=== PATIENT | male | born 1955 | race Caucasian/White ===

== ENCOUNTER 2017-05-11 09:11 | Outpatient (CLI) | payer BC | END 2017-05-11 09:12 | disposition home or self-care (01) | LOC: BICRAD 09:11 | PROVIDERS: ATTEND Neurological Surgery | DX: M47.26 Other spondylosis with radiculopathy, lumbar region (principal) | CPT/HCPCS: 72100 ==

== ENCOUNTER 2018-12-06 10:34 | Outpatient (CLI) | payer BC, MEDICARE ==
--- NOTE | 2018-12-06 14:02 | ULT ---
ABDOMINAL ULTRASOUND COMPLETE: Date: 12/06/18 HISTORY: Right upper quadrant and right flank pain. FINDINGS: Very heterogeneous echogenicity noted throughout the liver with some fairly well defined areas of hyp erechogenicity as well as some more normal or somewhat more low echogenic areas, most consistent with asymmetric fatty infiltration with some large areas of fatty sparing. No discrete focal mass. The gallbladder demonstrates no evidence of gallstones, wall thickening, edema, or pericholecystic fl uid. Common bile duct 0.5 cm. Visualized pancreas, IVC, aorta, and spleen are unremarkable. No renal hydronephrosis. No abscess or abnormal fluid collection. IMPRESSION: Heterogeneous liver echogenicity, evidence for fatty change, with large areas of fatty sparing. No ev idence of gallstones or other acute process. POS: [facility]
== END 2018-12-06 10:35 | disposition home or self-care (01) ==
LOC: BICULT 10:34
PROVIDERS: ATTEND Physician Assistant Medical
DX: R10.11 Right upper quadrant pain (principal); R19.4 Change in bowel habit; K76.0 Fatty (change of) liver, not elsewhere classified; R93.2 Abnormal findings on diagnostic imaging of liver and biliary tract
CPT/HCPCS: 76700

== ENCOUNTER 2022-03-04 13:24 | Outpatient (CLI) | payer MEDICARE, BC | END 2022-03-04 13:25 | disposition home or self-care (01) | LOC: RAD 13:24 | PROVIDERS: ATTEND Neurological Surgery | DX: M54.2 Cervicalgia (principal); R51.9 Headache, unspecified; M47.812 Spondylosis without myelopathy or radiculopathy, cervical region; I65.23 Occlusion and stenosis of bilateral carotid arteries | CPT/HCPCS: 72040 ==

== ENCOUNTER 2022-04-27 07:05 | Outpatient (CLI) | payer MEDICARE, BC ==
[2022-04-27] MEDS ORDERED: Iopamidol 370 76% 100 ML VIAL ONE (09:08)
== END 2022-04-27 07:06 | disposition home or self-care (01) ==
LOC: BICCT 07:05 → CT 07:06
PROVIDERS: ATTEND Neurological Surgery
DX: G43.909 Migraine, unspecified, not intractable, without status migrainosus (principal)
CPT/HCPCS: 70496; 82565; Q9967

== ENCOUNTER 2023-07-06 05:42 | Day surgery (SDC) | payer MEDICARE ==
[2023-07-05 10:56] VITALS: BMI 29.7
[~2023-07-06 05:42] MED LIST: EPINEPHrine 0.3 MG in Ophthalmic Irrigation Solution 500 ML IRR SCH
[2023-07-06] MEDS ORDERED: PHENYLephrine 2.5% Ophth Soln 15 ml Bottle ONE (06:05)
[2023-07-06] MEDS ORDERED: Cyclopentolate 1% Opth Drop 2 ML BOT ONE (06:05)
[2023-07-06] MEDS ORDERED: fentaNYL 50 mcg/mL 1 mL Vial ONE ×2 (06:59→07:10)
[2023-07-06] MEDS ORDERED: PROPOFOL 20 ML ONE (06:59)
[2023-07-06] MEDS ORDERED: Midazolam HCl 2 mg/2 ml Vial ONE (07:00)
[2023-07-06] MEDS ORDERED: Bupivacaine 0.75% 10 ML VIAL ONE (07:13)
[2023-07-06] MEDS ORDERED: CEFAZOLIN 1 GM VIAL ONE (07:13)
[2023-07-06] MEDS ORDERED: Dexamethasone 4 mg/ml Vial ONE ×2 (07:13→07:23)
[2023-07-06] MEDS ORDERED: Lidocaine 1% PF 5 ML VIAL ONE (07:13)
[2023-07-06] MEDS ORDERED: Triamcinolone 40 MG/ML VIAL ONE (07:13)
[2023-07-06] MEDS ORDERED: Maxitrol 0.1% Opth Oint 3.5 GM TUBE ONE (07:13)
[2023-07-06] MEDS ORDERED: Lidocaine 4% PF 5 ML AMP ONE (07:13)
== END 2023-07-06 08:00 | disposition home or self-care (01) ==
LOC: SDC 05:42
PROVIDERS: ATTEND Ophthalmology Retina Specialist
PROC: 08T53ZZ Resection of Left Vitreous, Percutaneous Approach (ICD-10-PCS; principal; 2023-07-06)
DX: H43.312 Vitreous membranes and strands, left eye (principal); Z91.038 Other insect allergy status
CPT/HCPCS: 67041; J3010; J0171; J0690; J1100; J2250; J2704; J3301; J3490

== ENCOUNTER 2023-11-16 05:50 | Day surgery (SDC) | payer MEDICARE ==
[2023-11-15 11:47] VITALS: BMI 31.5
[2023-11-16] MEDS ORDERED: Cyclopentolate 1% Opth Drop 2 ML BOT ONE (06:16)
[2023-11-16] MEDS ORDERED: PHENYLephrine 2.5% Ophth Soln 15 ml Bottle ONE (06:16)
[2023-11-16] MEDS ORDERED: Maxitrol 0.1% Opth Oint 3.5 GM TUBE ONE (07:01)
[2023-11-16] MEDS ORDERED: Lidocaine 1% PF 5 ML VIAL ONE (07:01)
[2023-11-16] MEDS ORDERED: Lidocaine 4% PF 5 ML AMP ONE (07:01)
[2023-11-16] MEDS ORDERED: Dexamethasone 20 MG/5 ML VIAL ONE (07:01)
[2023-11-16] MEDS ORDERED: Bupivacaine 0.75% 10 ML VIAL ONE (07:01)
[2023-11-16] MEDS ORDERED: PROPOFOL 200 MG/20 ML VIAL ONE (07:01)
[2023-11-16] MEDS ORDERED: CEFAZOLIN 1 GM VIAL ONE (07:01)
== END 2023-11-16 08:01 | disposition home or self-care (01) ==
LOC: SDC 05:50 → EEVIPCON 05:50 → SDC 08:01
PROVIDERS: ATTEND Ophthalmology Retina Specialist
PROC: 08943ZZ Drainage of Right Vitreous, Percutaneous Approach (ICD-10-PCS; principal; 2023-11-16)
DX: H43.311 Vitreous membranes and strands, right eye (principal); Z91.038 Other insect allergy status
CPT/HCPCS: 67041; 93005; J0171; J0690; J1100; J2704; J3490; 93010